=== PATIENT | male | born 1985 | race African-American/Black ===

== ENCOUNTER 2020-02-19 13:10 | Outpatient (RCR) | payer OTHER ==
[2020-02-27] MEDS ORDERED: K-TAB10 PO (11:42)
[2020-03-01] MEDS ORDERED: ZYPREXA 5MG5 MG PO (16:42)
[2020-03-01] MEDS ORDERED: VISINE A.C. 0.015 ML OP (17:12)
== END 2020-05-19 | disposition home or self-care (01) ==
LOC: WSOH
DX: M54.5 Low back pain (principal); Y99.0 Civilian activity done for income or pay

== ENCOUNTER 2020-02-27 09:50 | Inpatient (IN) | payer SELFPAY ==
[2020-02-27] VITALS (260 sets, daily range): BP systolic 123–132; BP diastolic 83–94; PULSE 61–65; TEMP 98.5–99.2; O2SAT 70–100
[~2020-02-27] VITALS: Ht 180.3 cm; Wt 84.0 kg
[2020-02-27 10:05] LABS: BASO % 0.2 % (0.0-2.0); EOS # 0.1 (0.0-0.7); EOS % 1.2 % (0-4.0); GRAN # 2.3 (1.4-6.5); GRAN % 45.8 % (42.2-75.2); HEMATOCRIT 39.2 % (42.0-52.0); HEMOGLOBIN 13.4 g/dl (13.5-18.0); LYMPH # 1.8 (1.2-3.4); LYMPH % 36.8 % (20.0-51.0); MEAN CELL VOLUME 82 fl (80.0-100.0); MEAN CORPUSCULAR HEMOGLOBIN 28 pg (27.0-31.0); MEAN CORPUSCULAR HGB CONC 34 g/dl (33.0-37.0); MONO # 0.8 (0.1-0.6); MONO % 15.8 % (1.7-9.3); PLATELET COUNT 194 K/mm3 (130-400); RED BLOOD COUNT 4.76 M/mm3 (4.20-5.60); REDCELL DISTRIBUTION WIDTH-CV 13.2 % (11.5-14.5)
[2020-02-27 10:20] LABS: ALANINE AMINOTRANSFERASE 98 U/L (4-49); ALBUMIN 3.8 gm/dL (3.5-5.0); ALKALINE PHOSPHATASE 57 U/L (50-136); ANION GAP 10 mmol/L (7-16); AST,SGOT 188 U/L (15-37); BILIRUBIN,TOTAL 0.7 mg/dL (0.0-1.0); BLOOD UREA NITROGEN 12 mg/dL (9-20); CALCIUM 8.8 mg/dL (8.4-10.2); CARBON DIOXIDE 30 mmol/L (22-30); CHLORIDE 93 mmol/L (98-107); GLUCOSE 104 mg/dL (74-106); POTASSIUM 3.2 mmol/L (3.4-5.0); SODIUM 134 mmol/L (137-145); TOTAL PROTEIN 7.1 gm/dL (6.4-8.2)
[2020-02-27 10:23] LABS: ALCOHOL(ethanol),MEDICAL < 10 mg/dL
[2020-02-27 10:36] LABS: PROLACTIN 14.1 ng/mL (3.7-17.9)
[2020-02-27] MEDS ORDERED: K-TAB10 PO (11:42)
[2020-02-27 11:49] LABS: TRICYCLIC ANTIDEPRESS URINE NEGATIVE
[2020-02-27 13:06] LABS: COLLECTION METHOD CATHETER
[2020-02-27 13:53] LABS: PH 6 (5-8); SQUAMOUS EPITHELIAL None Seen /hpf; URINE APPEARANCE Clear; URINE BACTERIA None Seen /hpf; URINE BILIRUBIN Negative (NEGATIVE); URINE BLOOD Negative (NEGATIVE); URINE COLOR Straw; URINE GLUCOSE Negative (NEGATIVE); URINE KETONE Negative (NEGATIVE); URINE LEUKOCYTE ESTERASE Negative (NEGATIVE); URINE NITRATE Negative (NEGATIVE); URINE PROTEIN(semi-quant) Negative (NEGATIVE); URINE RBC 0-2 /hpf; URINE UROBILINOGEN Negative (NEGATIVE)
--- NOTE | 2020-02-27 17:30 | NUR ---
PT ARRIVED TO ROOM VIA GURNEY FROM ED. PT NOT RESPONSIVE TO STAFF AT TIME OF ARRIVAL. ATTEMPTED TO ORIENT PT TO ROOM AND SURROUNDINGS WITHOUT SUCCESS. PT CHANGED AND 16F GOMEZ PLACED, PER ORDER. PT RESTING IN BED WITH EYES CLOSED, OPENED EYES BREIFYLY WHEN ASSESSING, BUT DID NOT SPEAK TO THIS NURSE OR ANSWER QUESTIONS.
--- NOTE | 2020-02-27 18:58 | NUR ---
Upon admission to ICU room 8, patient does not respond to painful stimuli or verbal stimuli so valuables sent to safe with Dioni Barrera RN. Valuables sent include : black cell phone, brown wallet with DL, SS card, multiple credit cards, and no choi, and 1 silver lowe on blue lowe ring. Clothing and shoes left in room.
--- NOTE | 2020-02-27 22:37 | NUR ---
At 2215, PT suddenly woke up, pressed call light and asked to get some lunch. This RN entered the room, PT asked the same question. Notified patient that he is currently NPO but I will contact the doctor for a diet order. Gave a patient an oral swab, he then swabbed his mouth and looked around the room. Asked patient if he knew where he was at, what kind of building we were in, what it looks like this RN does (pointing at scrubs, stethoscope, etc -- a nurse), the month and year, who the president was -- PT did not know the answer to any of these questions. Notified provider that PT woke up at this time, requested a diet order. General diet ordered. When this RN entered the room a few minutes later to give PT a cup of water, PT was back to being very lethargic, back to previous assessment of mental status. Water not given at this time since patient is unable to stay awake. Will continue to monitor for neuro changes.
[2020-02-28] VITALS (1001 sets, daily range): BP systolic 109–148; BP diastolic 70–93; PULSE 56–76; TEMP 97.4–99; O2SAT 71–100
[2020-02-28 07:44] LABS: BASO % 0.2 % (0.0-2.0); EOS % 0.9 % (0-4.0); GRAN # 2.1 (1.4-6.5); GRAN % 46.3 % (42.2-75.2); HEMOGLOBIN 12.6 g/dl (13.5-18.0); LYMPH # 1.9 (1.2-3.4); LYMPH % 40.6 % (20.0-51.0); MEAN CELL VOLUME 85 fl (80.0-100.0); MEAN CORPUSCULAR HEMOGLOBIN 28 pg (27.0-31.0); MEAN CORPUSCULAR HGB CONC 33 g/dl (33.0-37.0); MEAN PLATELET VOLUME 11.5 fl (7.4-10.4); MONO # 0.5 (0.1-0.6); MONO % 11.8 % (1.7-9.3); PLATELET COUNT 176 K/mm3 (130-400); RED BLOOD COUNT 4.46 M/mm3 (4.20-5.60); REDCELL DISTRIBUTION WIDTH-CV 13.4 % (11.5-14.5)
[2020-02-28 08:03] LABS: BILIRUBIN,TOTAL 0.9 mg/dL (0.0-1.0); CALCIUM 8.2 mg/dL (8.4-10.2); CREATININE, serum 1.08 (0.66-1.25); POTASSIUM 3.7 mmol/L (3.4-5.0)
--- NOTE | 2020-02-28 09:30 | NUR ---
Patient bed alarm goes off. This RN, Lamar, RN and Linden RN enter the room to find patient unsteadily standing at the side of bed. He is asked to sit down and allow us to help him. He is unable to be redirected and starts to fight against us, almost falling. Security is called. Dr. Abebe enters the room to assist. Patient is given 5 mg Haldol, per Dr. Abebe verbal order and 4 point locked restraints are applied and secured to the bed. Patient is educated on why he needs to be in restraints at this time. He looks at me but does not respond as if he understands. Patient bedside monitor reapplied and VS taken. VS WNL. Will continue to monitor closely
--- NOTE | 2020-02-28 14:00 | NUR ---
All information faxed to [facility] for assessment. Leela to review and call with zoom meeting with pt.
--- NOTE | 2020-02-28 14:18 | NUR ---
RESTRAINTS REMOVED AT THIS TIME PER VERBAL ORDER FROM DR. VIVEROS. ATTEMPTED TO DO SCREEN WITH [employer] S[employer] VIA ZOOM CALL AND PATIENT WOULD NOT INTERACT WITH STAFF OR TALK TO [employer] SCREENER. WILL TRY AGAIN IN A LITTLE WHILE WITH THE SISTER IN THE ROOM IF SHE IS ABLE TO BE PRESENT. THE PATIENT HAS RESPONDED POSITIVELY TO THE SISTER TODAY AND HASN'T INTERACTED CONSISTENTLY WITH ANY OF THE HOSPITAL STAFF.
--- NOTE | 2020-02-28 15:59 | NUR ---
Patient was placed in 4 points restraints, which have been removed. Patient is awaiting psychiatric screening by [facility]. Case management will continue to follow to assist as needed with discharge planning needs.
--- NOTE | 2020-02-28 16:30 | NUR ---
[facility] spoke with sister, Keya. Pt not responding at time of zoom calls x2. Pt is now Involuntary placement hold until availaibilty. Pt continues to avoid talking and opening eyes when speaking to him at this time.
--- NOTE | 2020-02-28 17:47 | NUR ---
Pt up and alert at this time, talking to sister at bedside and eating dinner. Pt laughing and alert and oriented at this time. Spoke to patient about communicating and participaiting in care when nursing staff is in his room and when talking to [facility], pt states understanding and is in agreement with communicating with staff. Pt aware that if he does not communicate with staff that he will remain involuntary placment and hold until bed avaialble.
--- NOTE | 2020-02-28 21:00 | NUR ---
Patient utilized call light to request ice water. Patient appeared slightly drowsy but otherwise alert and oriented. Utilized urinal while nurse was present, and was cooperative with this nurse. Was able to answer most questions appropriately. Although, often he would only shake head yes or no and not elaborate further. Left call light within reach. Will continue to monitor.
[2020-02-29] VITALS (235 sets, daily range): BP systolic 82–143; BP diastolic 69–93; PULSE 61–75; TEMP 98–99.2; O2SAT 73–100
--- NOTE | 2020-02-29 08:00 | NUR ---
Patient is in a pleasant mood this morning and is communicating appropriately with staff. He is follwowing commands and is being politeful
--- NOTE | 2020-02-29 12:45 | NUR ---
Leela, from [facility] called to get update on patients status today. She was informed that the patient has had a good day and has been talkative and behavior has been very appropriate. She said she will continue to call and check in on him daily and if he continues to behave she will do a re-screen in 5 days. As of now the patient is last on the list to go to an outpatient psych facility so it will be a while, however, everything is in the works legally.
--- NOTE | 2020-02-29 20:30 | NUR ---
Patient offered and accepted clean linens and to take a "sink bath". Gait steady and patient able to independenly clean himself. This nurse assisted with changing linens. Patient pleasant and cooperative with staff. Fully alert and oriented. Provided a snack before bed. Call light left within reach; will continue to monitor.
--- NOTE | 2020-02-29 23:45 | NUR ---
Patient up to use bathroom. Requesting snack. No concerns at this time. Will continue to monitor.
[2020-03-01] VITALS (8 sets, daily range): BP systolic 109–124; BP diastolic 64–79; PULSE 55–80; TEMP 98.1–98.6; O2SAT 97–98
--- NOTE | 2020-03-01 07:30 | NUR ---
Shift assessment complete at this time. Plan of care reviewed at bedside with patient. Additional time taken to address any other needs or concerns. Vitals stable at this time. Pt denies pain or any other discomforts. Bed in low position, call light within reach, will continue to monitor.
--- NOTE | 2020-03-01 12:00 | NUR ---
Pt resting comfortably in bed. Denies any pain or discomfort at this time. Vitals stable. After discussion with physician and patient at bedside, [facility] will be contacted to ascertain whether Pt can be rescreened to reevaluate the need for his involuntary placement status.
--- NOTE | 2020-03-01 14:31 | NUR ---
Pt meeting with [facility] at this time.
--- NOTE | 2020-03-01 16:00 | NUR ---
Pt resting comfortably in bed. Denies any complaints or concerns at this time. Bed in low et locked position, will continue to monitor.
[2020-03-01] MEDS ORDERED: ZYPREXA 5MG5 MG PO (16:42)
--- NOTE | 2020-03-01 17:07 | NUR ---
While completing discharge process. Initial assessment noted that cell phone, wallet, keys, and clothing were left in safe and room respecitively. After checking both the room and all safes, personal items were not found. Upon conferring with patient et sister, it was confirmed by both the sister and patient that the patient's sister Keya had possession of all the personal items that the patient presented with on admission.
[2020-03-01] MEDS ORDERED: VISINE A.C. 0.015 ML OP (17:12)
== END 2020-03-01 18:10 | disposition short-term general hospital (02) | DRG 885 ==
LOC: COL.ER 09:50 → ICU 14:04
PROVIDERS: Emergency Medicine
DX: F29 Unspecified psychosis not due to a substance or known physiological condition (principal); M62.82 Rhabdomyolysis; E87.3 Alkalosis; F19.921 Other psychoactive substance use, unspecified with intoxication with delirium; E87.8 Other disorders of electrolyte and fluid balance, not elsewhere classified; E87.6 Hypokalemia; F17.210 Nicotine dependence, cigarettes, uncomplicated; S00.81XA Abrasion of other part of head, initial encounter; S80.212A Abrasion, left knee, initial encounter; S80.211A Abrasion, right knee, initial encounter; F20.9 Schizophrenia, unspecified
CPT/HCPCS: 99232-AI; 99239; J1630; J2543; J3480; J7030; J7120